=== PATIENT | female | born 1975 | race Caucasian/White ===

== ENCOUNTER 2017-09-07 17:39 | Inpatient (IN) | payer OTHER ==
[~2017-09-07] VITALS: Ht 157.5 cm; Wt 99.8 kg
[2017-09-07] MEDS ORDERED: METHYLPREDNISOLONE 125 MG VIAL IV STA (19:15)
[2017-09-07] MEDS ORDERED: ALBUT/IPRATROP 3MG/0.5MG NEB 3 ML VIAL INH ONE (19:30)
[2017-09-07 19:32] VITALS: PULSE 117; O2SAT 94
--- NOTE | 2017-09-07 19:34 | DIAGNOSTIC IMAGING REPORT ---
CHEST ONE VIEW PORTABLE CLINICAL HISTORY: cough COMPARISON STUDY: No previous studies for comparison. FINDINGS: The heart is normal in size. There is no failure. There is no focal pulmonary consolidation. There are no pleural effusions. There is equivocal interstitial thickening, left greater than right. And interstitial inflammatory process cannot be excluded. Clinical and/or radiographic follow-up is recommended.[ IMPRESSION: Equivocal nonspecific interstitial thickening. No evidence of lobar consolidation Electronically signed by: Frederick Myers M.D. 09/07/2017 7:33 PM Dictated Date/Time: 09/07/2017 7:31 PM
[2017-09-07 19:36] LABS: BASO % 0.4 %; BASO ABS # 0.05 K/uL (0-0.2); EOS % 0.9 %; EOS ABS # 0.12 K/uL (0-0.5); HEMATOCRIT 39.4 % (37-47); HEMOGLOBIN 13.8 g/dL (12.0-16.0); IG# 0.05 K/uL (0.00-0.02); LYMPH % 23.5 %; LYMPH ABS # 3.03 K/uL (1.2-3.4); MEAN CELL VOLUME 83.7 fL (80-100); MEAN CORPUSCULAR HEMOGLOBIN 29.3 pg (25-34); MEAN PLATELET VOLUME 8.6 fL (7.4-10.4); MONO % 7.7 %; MONO ABS # 0.99 K/uL (0.11-0.59); NEUT % 67.1 %; NEUT ABS # 8.67 K/uL (1.4-6.5); PLATELET COUNT 345 K/uL (130-400); RED CELL DISTRIBUTION WIDTH CV 14.1 % (11.5-14.5); RED CELL DISTRIBUTION WIDTH SD 43.1 fL (36.4-46.3); WHITE BLOOD COUNT 12.91 K/uL (4.8-10.8)
[2017-09-07 19:48] LABS: ALBUMIN 3.3 gm/dl (3.4-5.0); ALT/SGPT 29 U/L (12-78); BLOOD UREA NITROGEN 14 mg/dl (7-18); CALCIUM 9.4 mg/dl (8.5-10.1); CARBON DIOXIDE 24 mmol/L (21-32); CREATININE 0.67 mg/dl (0.60-1.20); GLUCOSE 123 mg/dl (70-99); POTASSIUM 3.5 mmol/L (3.5-5.1); SODIUM 136 mmol/L (136-145)
[2017-09-07 19:53] LABS: ALKALINE PHOSPHATASE 109 U/L (45-117); AST/SGOT 20 U/L (15-37); TOTAL PROTEIN 7.6 gm/dl (6.4-8.2)
--- NOTE | 2017-09-07 20:04 | EMERGENCY ROOM VISIT NOTE ---
History Report prepared by Kenji: Gorge Fried Under the Supervision of: Dr. Alec Tsai M.D. First contact with patient: 18:53 Chief Complaint: ILLNESS Stated Complaint: CAN'T BREATH, RT EAR ACHE History of Present Illness The patient is a 41 year old female who presents to the Emergency Room with complaints of a worsening fever that began a week ago. She rates her discomfort as a 3/10 in severity. The patient states that a week ago she started to experiencing a fever, cough, hoarse voice, and right ear pain. She states that she believed she was starting to develop a cold. The patient states that she has been experiencing body aches, a headache, and mild diarrhea. The patient states that throughout the week, her symptoms worsened and she started to become short of breath. She states that her left ear has also been starting to become painful. She states that she went to [place] on the due to her symptoms where they gave her albuterol, Biaxin, Tamiflu, and prednisone, but she denies any relief of symptoms. The patient states that she had an CT and X- ray done, without any significant results. The patient denies LOC, chills, diaphoresis, visual changes, neck pain, chest pain, nausea, vomiting, abdominal pain, back pain, melena, hematochezia, urinary symptoms, numbness, weakness, lymphadenopathy, rash, or other complaints. She reports a history of blood clots, which she states she took blood thinners for but that the blood thinners did not work. Source of History: patient Onset: a week ago Position: other (global) Symptom Intensity: 3/10 Timing: worsening Modifying Factors (Relieving): other (Prednisone, albuterol, Biaxin, Tamiflu ) Associated Symptoms: + headache, + cough, + SOB, + diarrhea Review of Systems See HPI for pertinent positives and negatives. A total of ten systems were reviewed and were otherwise negative. Past Medical & Surgical Medical Problems: (1) COPD exacerbation (2) H/O blood clots Family History Patient reports no known family medical history. Social History Smoking Status: Current Every Day Smoker Marital Status: Housing Status: lives with significant other Current/Historical Medications No Active Prescriptions or Reported Meds Allergies Coded Allergies: No Known Allergies (Unverified , 09/07/17) Physical Exam Vital Signs Date Time Temp Pulse Resp B/P (MAP) Pulse Ox O2 Delivery O2 Flow Rate FiO2 09/07/17 23:10 122 22 141/124 96 Room Air 09/07/17 21:37 111 22 175/85 99 Room Air 09/07/17 19:54 114 22 189/100 99 Nebulizer 09/07/17 19:43 98 Room Air 09/07/17 19:43 98 Room Air 09/07/17 19:32 117 24 94 Room Air 09/07/17 18:15 36.9 117 20 183/97 96 Room Air Physical Exam GENERAL: Awake, alert, well-appearing, in no distress HENT: Normocephalic, atraumatic. Oropharynx unremarkable. Mild right ear tenderness. EYES: Normal conjunctiva. Sclera non-icteric. NECK: Supple. No nuchal rigidity. FROM. No JVD. RESPIRATORY: Wheezing bilaterally, hoarse breath sounds. CARDIAC: Tachycardic, normal rhythm. Extremities warm and well perfused. Pulses equal. ABDOMEN: Soft, non-distended. No tenderness to palpation. No rebound or guarding. No masses. RECTAL: Deferred. MUSCULOSKELETAL: Chest examination reveals no tenderness. The back is symmetrical on inspection without obvious abnormality. There is no CVA tenderness to palpation. No joint edema. LOWER EXTREMITIES: Calves are equal size bilaterally and non-tender. No edema. No discoloration. NEURO: Normal sensorium. No sensory or motor deficits noted. SKIN: No rash or jaundice noted. Medical Decision & Procedures ER Provider Diagnostic Interpretation: X-ray: Per my interpretation, radiologist review. CHEST ONE VIEW PORTABLE CLINICAL HISTORY: cough COMPARISON STUDY: No previous studies for comparison. FINDINGS: The heart is normal in size. There is no failure. There is no focal pulmonary consolidation. There are no pleural effusions. There is equivocal interstitial thickening, left greater than right. And interstitial inflammatory process cannot be excluded. Clinical and/or radiographic follow-up is recommended.[ IMPRESSION: Equivocal nonspecific interstitial thickening. No evidence of lobar consolidation Electronically signed by: Frederick Myers M.D. 09/07/2017 7:33 PM Dictated Date/Time: 09/07/2017 7:31 PM Laboratory Results 09/07/17 19:23 Red Blood Count 4.71, Mean Corpuscular Volume 83.7, Mean Corpuscular Hemoglobin 29.3, Mean Corpuscular Hemoglobin Concent 35.0, Mean Platelet Volume 8.6, Neutrophils (%) (Auto) 67.1, Lymphocytes (%) (Auto) 23.5, Monocytes (%) (Auto) 7.7, Eosinophils (%) (Auto) 0.9, Basophils (%) (Auto) 0.4, Neutrophils # (Auto) 8.67, Lymphocytes # (Auto) 3.03, Monocytes # (Auto) 0.99, Eosinophils # (Auto) 0.12, Basophils # (Auto) 0.05 09/07/17 19:23 Test 09/07/17 19:23 White Blood Count 12.91 K/uL (4.8-10.8) Red Blood Count 4.71 M/uL (4.2-5.4) Hemoglobin 13.8 g/dL (12.0-16.0) Hematocrit 39.4 % (37-47) Mean Corpuscular Volume 83.7 fL (80-100) Mean Corpuscular Hemoglobin 29.3 pg (25-34) Mean Corpuscular Hemoglobin Concent 35.0 g/dl (32-36) Platelet Count 345 K/uL (130-400) Mean Platelet Volume 8.6 fL (7.4-10.4) Neutrophils (%) (Auto) 67.1 % Lymphocytes (%) (Auto) 23.5 % Monocytes (%) (Auto) 7.7 % Eosinophils (%) (Auto) 0.9 % Basophils (%) (Auto) 0.4 % Neutrophils # (Auto) 8.67 K/uL (1.4-6.5) Lymphocytes # (Auto) 3.03 K/uL (1.2-3.4) Monocytes # (Auto) 0.99 K/uL (0.11-0.59) Eosinophils # (Auto) 0.12 K/uL (0-0.5) Basophils # (Auto) 0.05 K/uL (0-0.2) RDW Standard Deviation 43.1 fL (36.4-46.3) RDW Coefficient of Variation 14.1 % (11.5-14.5) Immature Granulocyte % (Auto) 0.4 % Immature Granulocyte # (Auto) 0.05 K/uL (0.00-0.02) Anion Gap 10.0 mmol/L (3-11) Est Creatinine Clear Calc Drug Dose 122.1 ml/min Estimated GFR () 126.5 Estimated GFR (Non- 109.2 BUN/Creatinine Ratio 21.1 (10-20) Calcium Level 9.4 mg/dl (8.5-10.1) Total Bilirubin 0.3 mg/dl (0.2-1) Aspartate Amino Transf (AST/SGOT) 20 U/L (15-37) Alanine Aminotransferase (ALT/SGPT) 29 U/L (12-78) Alkaline Phosphatase 109 U/L (45-117) Troponin I < 0.015 ng/ml (0-0.045) Total Protein 7.6 gm/dl (6.4-8.2) Albumin 3.3 gm/dl (3.4-5.0) Globulin 4.3 gm/dl (2.5-4.0) Albumin/Globulin Ratio 0.8 (0.9-2) Laboratory results reviewed by me Medications Administered Medications (Trade) Dose Ordered Sig/Dany Route Start Time Stop Time Status Last Admin Dose Admin Methylprednisolone Sodium Succinate (Solu-Medrol IV) 125 mg NOW STAT IV 09/07/17 19:15 09/07/17 19:16 DC 09/07/17 19:15 125 MG Albuterol/ Ipratropium (Duoneb) 12 ml ONE ONCE INH 09/07/17 19:30 09/07/17 19:31 DC 09/07/17 19:30 12 ML Hydrocodone Bit/ Homatropine Methylb (Hycodan Syrup) 10 ml NOW STAT PO 09/07/17 21:14 09/07/17 21:16 DC 09/07/17 21:14 10 ML Albuterol/ Ipratropium (Duoneb) 3 ml NOW STAT INH 09/07/17 21:37 09/07/17 21:38 DC 09/07/17 21:37 3 ML Albuterol Sulfate (Ventolin 0.083% 2.5MG/3ML Neb) 2.5 mg NOW STAT INH 09/07/17 23:32 09/07/17 23:33 DC 09/07/17 23:41 2.5 MG ECG Indication: SOB/dyspnea Rate (beats per minute): 113 Rhythm: sinus tachycardia Findings: no acute ischemic change, no ectopy, other (PRWP) Change: Patient's electrocardiogram was interpreted by me. ED Course 1909: The patient was evaluated in room A04B. A complete history and physical exam was performed. 1914: Ordered Solu-Medrol 125 mg IV. 1929: Ordered Duoneb 12 ml INH. 1957: I reevaluated the patient and she is feeling slightly better. 2107: I reevaluated the patient and she is having a coughing fit. I reexamined her lungs, which showed improvement. The patient states that she is still short of breath. I updated her on the results and discussed further evaluation. She agreed to the plan. 2113: Ordered Hycodan Syrup 10 ml PO. 2136: Ordered Duoneb 3 ml INH. 2233: I discussed the patient's case with Dr. Gil, [facility] Hospitalist. He understands the patient's condition and agrees to accept the patient. The patient will be further evaluated. Medical Decision Prior records/ancillary studies reviewed. Triage Nursing notes reviewed and agree them. Additional history obtained from the family. The patient's history was concerning for shortness of breath. Differential diagnosis: Etiologies such as pneumonia, COPD, reactive airway disease, CHF, cardiac ischemia, pulmonary embolism, pneumothorax, musculoskeletal, infections, gastrointestinal, as well as others were entertained. Physical examination: As above. Bilateral wheezing. She had mild laryngitis. ER treatment provided: IV Solu-Medrol Hour long DuoNeb On reassessment the patient felt no better. Hycodan Additional nebulizer treatment. On reassessment the patient was still feeling short of breath and had increased work of breathing. Her wheezing had improved. Tessalon Perle Additional nebulizer treatment. Diagnostic interpretation by me: The electrocardiogram was negative for pathologic change. The labs revealed mild leukocytosis on CBC. Chemistry panel unremarkable. Cardiac markers negative. Imaging studies: Chest x-ray as above. The patient has signs and symptoms consistent with an asthmatic bronchitis. She had flulike symptoms and she had significant wheezing. She is a smoker. She has no known history of asthma or COPD at this point. Given her work of breathing and significant amount of bronchodilators needed she will require admission to the hospital.I gave my usual and customary discussion regarding this issue. Consultation: A consultation was placed with the hospitalist. The case was discussed and diagnostics were reviewed. The patient was evaluated in the ER for further treatment. Medication Reconcilliation Current Medication List: was personally reviewed by me Blood Pressure Screening Patient's blood pressure: Elevated blood pressure Referred to Hospitalist. Consults Time Called: 2233 Consulting Physician: Dr. Gil, [facility] Hospitalist Returned Call: 2233 I discussed the patient's case with Dr. Gil, [facility] Hospitalist. He understands the patient's condition and agrees to accept the patient. The patient will be further evaluated. Impression Primary Impression: Shortness of breath Additional Impressions: Wheezing RAD (reactive airway disease) Scribe Attestation The scribe's documentation has been prepared under my direction and personally reviewed by me in its entirety. I confirm that the note above accurately reflects all work, treatment, procedures, and medical decision making performed by me. Departure Information Dispostion Being Evaluated By Hospitalist Prescriptions No Active Prescriptions or Reported Meds Referrals Trevor Olson PA-C (PCP) Patient Instructions My [facility] Problem Qualifiers
[2017-09-07] MEDS ORDERED: HYDROCODONE/HOMATROPINE SYRUP 5MG/1.5MG 5ML UDP PO STA (21:14)
[2017-09-07] MEDS ORDERED: ALBUT/IPRATROP 3MG/0.5MG NEB 3 ML VIAL INH STA (21:37)
[2017-09-07] MEDS ORDERED: ALBUTEROL 0.083% NEBU SOLN 3 ML VIAL INH STA (23:32)
[2017-09-07] MEDS ORDERED: POLYETHYLENE (MIRALAX) 17 GM PACK PO PRN (23:45)
[2017-09-07] MEDS ORDERED: ALUMINUM/MAGNESIUM/SIMETH (MAALOX MAX) 30 ML UDC PO PRN (23:45)
[2017-09-07] MEDS ORDERED: MAGNESIUM HYDROXIDE SUSP 30 ML UDC PO PRN (23:45)
[2017-09-07] MEDS ORDERED: ALBUTEROL 0.083% NEBU SOLN 3 ML VIAL INH PRN (23:45)
[2017-09-07] MEDS ORDERED: ONDANSETRON INJ 2 MG/ML 2 ML VIAL IV PRN (23:45)
[2017-09-07] MEDS ORDERED: BENZONATATE 100MG CAP PO ONE (23:45)
[2017-09-08] VITALS (8 sets, daily range): BP systolic 134–165; BP diastolic 78–97; PULSE 80–137; TEMP 36.7–36.9; O2SAT 90–94; BMI 40.2
--- NOTE | 2017-09-08 00:10 | History and Physical ---
History & Physical Date & Time of Service: Sep 07, 2017 at 23:54 Chief Complaint: Can't Breath, Rt Ear Ache Primary Care Physician: Trevor Olson PA-C History of Present Illness Source: patient 41 y/o F smoker who has had upper respiratory symptoms for approximately one week. She primarily complains of a persistent coughing. She had been to the ER at [place] and was D/Cd from the ER with Biaxin, Albuterol, Tamiflu and a Prednisone taper. She states that these medications have not improved her condition. She had mild diarrhea and reported fevers initially. She is SOB but has not displayed hypoxia. She had also reported an ear ache on the R earlier in the week. The pt reports that she currently has a child with URI symptoms. Past Medical/Surgical History Tobacco abuse Denies a history of COPD or asthma Family History Patient reports no known family medical history. Father - lung CA Social History Smokes one pack QD > 20 yrs Smoking Status: Current Every Day Smoker Marital Status: Allergies Coded Allergies: No Known Allergies (Unverified , 09/07/17) Home Medications No Active Prescriptions or Reported Meds Review of Systems Constitutional: No fever, No chills, No sweats Eyes: No worsening of vision ENT: No hearing loss, No unusual epistaxis, No nasal symptoms Respiratory: + cough Cardiovascular: No chest pain, No orthopnea, No PND Abdomen: + diarrhea, No pain, No nausea, No vomiting Musculoskeletal: No joint pain Genitourinary - Female: No dysuria, No urinary frequency, No urinary urgency Neurologic: No memory loss, No paralysis, No weakness Psychiatric: No depression symptoms Endocrine: No fatigue Hematologic / Lymphatic: No abnormal bleeding/bruising Integumentary: No rash Allergic / Immunologic: No environmental allergies Physical Exam Vital Signs Date Time Temp Pulse Resp B/P (MAP) Pulse Ox O2 Delivery O2 Flow Rate FiO2 09/07/17 23:10 122 22 141/124 96 Room Air 09/07/17 21:37 111 22 175/85 99 Room Air 09/07/17 19:54 114 22 189/100 99 Nebulizer 09/07/17 19:43 98 Room Air 09/07/17 19:43 98 Room Air 09/07/17 19:32 117 24 94 Room Air 09/07/17 18:15 36.9 117 20 183/97 96 Room Air General Appearance: + pertinent finding (Distressed, overweight younger female - could not stop coughing for exam - made it difficult for her to complete her sentences) Head: normocephalic Eyes: normal inspection ENT: normal ENT inspection, pharynx normal Neck: supple, no JVD Respiratory/Chest: chest non-tender, + pertinent finding (Exam was limited due to coughing and resultant shallow resprs - could not hear clear crackles or wheezing) Cardiovascular: no edema, no gallop, + tachycardia Abdomen/GI: normal bowel sounds, non tender, soft Back: normal inspection Extremities/Musculoskelatal: normal inspection, no calf tenderness, normal capillary refill 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, no motor/sensory deficits, alert, oriented x 3 Skin: normal color Diagnostics Laboratory Results Results Past 24 Hours Test 09/07/17 19:23 Range/Units White Blood Count 12.91 4.8-10.8 K/uL Red Blood Count 4.71 4.2-5.4 M/uL Hemoglobin 13.8 12.0-16.0 g/dL Hematocrit 39.4 37-47 % Mean Corpuscular Volume 83.7 80-100 fL Mean Corpuscular Hemoglobin 29.3 25-34 pg Mean Corpuscular Hemoglobin Concent 35.0 32-36 g/dl Platelet Count 345 130-400 K/uL Mean Platelet Volume 8.6 7.4-10.4 fL Neutrophils (%) (Auto) 67.1 % Lymphocytes (%) (Auto) 23.5 % Monocytes (%) (Auto) 7.7 % Eosinophils (%) (Auto) 0.9 % Basophils (%) (Auto) 0.4 % Neutrophils # (Auto) 8.67 1.4-6.5 K/uL Lymphocytes # (Auto) 3.03 1.2-3.4 K/uL Monocytes # (Auto) 0.99 0.11-0.59 K/uL Eosinophils # (Auto) 0.12 0-0.5 K/uL Basophils # (Auto) 0.05 0-0.2 K/uL RDW Standard Deviation 43.1 36.4-46.3 fL RDW Coefficient of Variation 14.1 11.5-14.5 % Immature Granulocyte % (Auto) 0.4 % Immature Granulocyte # (Auto) 0.05 0.00-0.02 K/uL Sodium Level 136 136-145 mmol/L Potassium Level 3.5 3.5-5.1 mmol/L Chloride Level 102 98-107 mmol/L Carbon Dioxide Level 24 21-32 mmol/L Anion Gap 10.0 3-11 mmol/L Blood Urea Nitrogen 14 7-18 mg/dl Creatinine 0.67 0.60-1.20 mg/dl Est Creatinine Clear Calc Drug Dose 122.1 ml/min Estimated GFR () 126.5 Estimated GFR (Non- 109.2 BUN/Creatinine Ratio 21.1 10-20 Random Glucose 123 70-99 mg/dl Calcium Level 9.4 8.5-10.1 mg/dl Total Bilirubin 0.3 0.2-1 mg/dl Aspartate Amino Transf (AST/SGOT) 20 15-37 U/L Alanine Aminotransferase (ALT/SGPT) 29 12-78 U/L Alkaline Phosphatase 109 45-117 U/L Troponin I < 0.015 0-0.045 ng/ml Total Protein 7.6 6.4-8.2 gm/dl Albumin 3.3 3.4-5.0 gm/dl Globulin 4.3 2.5-4.0 gm/dl Albumin/Globulin Ratio 0.8 0.9-2 Diagnostic Radiology CXR: No clear evidence of PNM, COPD Nonpathologic hilar lymphadenopathy seen on CT without additional acute findings EKG Sinus tach Impression Assessment and Plan 41 y/o F smoker who has had upper respiratory symptoms for approximately one week. She primarily complains of a persistent coughing. She had been to the ER at [place] and was D/Cd from the ER with Biaxin, Albuterol, Tamiflu and a Prednisone taper. She states that these medications have not improved her condition. She had mild diarrhea and reported fevers initially. She is SOB but has not displayed hypoxia. She had also reported an ear ache on the R earlier in the week. The pt likely has a viral URI as she reports a child with same had been sick earlier in the week. She may have underlying lung disease leading to her perceived lack of improvement and persistent cough. We will place her on an asthma/COPD regimen with Zithromax and request a pulmonary consult. To suppress her cough we have provided both IV steroids and a cough syrup with codeine. Pt is to receive advice on smoking cessation. Full code - Lovenox prophylaxis Total time for this admit including review of labs, meds, imaging - review of outside records - discussion with pt and ER attending - 37 min Level of Care Med/Surg Resuscitation Status FULL RESUSCITATION VTE Prophylaxis VTE Risk Assessment Done? Y/N: Yes Risk Level: Low Given or contraindicated: Enoxaparin (Lovenox)SQ
[2017-09-08] MEDS ORDERED: GUAIFENESIN/CODEINE 100MG/10MG 5ML UDC PO STA (00:20)
[2017-09-08] MEDS: AZITHROMYCIN IV 500 MG in DEXTROSE 5% 250ML 250 ML IV SCH (01:12)
[2017-09-08] MEDS: ZOLPIDEM TARTRATE 5 MG TAB PO PRN ×2 (01:33→20:27)
[2017-09-08] MEDS: METHYLPREDNISOLONE IV 60 MG in SYRINGE 0 ML IV SCH ×4 (01:33→20:28)
[2017-09-08] MEDS: ALBUT/IPRATROP 3MG/0.5MG NEB 3 ML VIAL INH SCH ×4 (02:07→19:07)
[2017-09-08 09:21] LABS: HEMATOCRIT 37.6 % (37-47); HEMOGLOBIN 13.1 g/dL (12.0-16.0); MEAN CELL VOLUME 83.6 fL (80-100); MEAN CORPUSCULAR HEMOGLOBIN 29.1 pg (25-34); MEAN CORPUSCULAR HGB CONC 34.8 g/dl (32-36); MEAN PLATELET VOLUME 8.8 fL (7.4-10.4); PLATELET COUNT 361 K/uL (130-400); RED CELL DISTRIBUTION WIDTH CV 14.1 % (11.5-14.5); WHITE BLOOD COUNT 17.97 K/uL (4.8-10.8)
[2017-09-08 09:28] LABS: CREATININE 0.91 mg/dl (0.60-1.20)
--- NOTE | 2017-09-08 09:47 | PULMONARY CONSULTATION ---
DATE OF CONSULTATION: 09/08/2017 TIME: 8:25 a.m. REPORT OF CONSULTATION: The patient was seen in room 400. She is a 41-year-old female who has been sick for approximately 1 week. She developed a myriad of symptoms including fevers and cough. She has had fevers up and down over the course of the past week and they have been persistent. Her cough has been severe. It is generally non-productive. She has had some hoarseness. She has noticed some pain in her chest related specifically to coughing. She has had headaches, which she felt was from the cough. She has had pain in the area of the right ear. She has had somewhat diffuse myalgias. She has had mild diarrhea. She went to the Emergency Room in [place] on September 02. They reportedly treated her with Tamiflu, although her flu test was actually negative. They gave her an albuterol inhaler, which was Proventil. They gave her clarithromycin. They gave her prednisone. They did do a CT angio of the chest in [place]. This showed no evidence of pulmonary embolism. They reported mild prominence of the mediastinal and hilar lymph nodes, but without pathologic enlargement. The patient did not improve after several days of treatment. She went to her family physician yesterday who referred her to [facility]. Since she has been here, she has not had a fever. She is feeling modestly better, but still short of breath. The biggest symptom for her has been wheezing. She has received several breathing treatments with benefit. She notices that the neb treatments seemed to help her. She was given Solu-Medrol. She was given some Hycodan syrup. She has not exerted herself to any degree. The patient relates that she has had in the wintertime of the last 2 years, similar illnesses that went to her chest with an asthmatic bronchitis type of problem. She was not as sick with those episodes as she was currently. Her prior lung history is that she had a pulmonary embolism diagnosed about 20 years ago. She thinks she was only on anticoagulation for a couple of weeks, but she was not really sure. She states that there has never been a diagnosis of COPD made. She has never had pulmonary functions. She has not been on any inhaler medicines at home in the past. PAST SURGICAL HISTORY: Tubal ligation. PAST MEDICAL HISTORY: Only as noted above. SOCIAL HISTORY: Tobacco 1 pack per day for more than 25 years. Alcohol use is described as social. FAMILY HISTORY: Mother at age 60 from lung cancer. She was a smoker. Father living, age 73, has diabetes. ALLERGIES: No known allergies. 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 REVIEW OF SYSTEMS: The patient lives with her significant other and 2 sons. She states all are sick at present with a respiratory type illness. Her energy level is decreased. She does have nasal congestion and postnasal drip. The left ear is starting to bother her some as well as the right ear. Her appetite has been relatively unaffected. The remainder of virtue of systems is otherwise negative. Ten systems were reviewed. PHYSICAL EXAMINATION: GENERAL: The patient is a 41-year-old female who was cooperative, alert and oriented. She was in no acute distress. VITAL SIGNS: Temperature this morning is 36.8. HEENT: Pupils were reactive to light. Nares were congested. Mouth exam shows an enlarged uvula with moderate narrowing in the pharynx. She admitted to snoring. She states she has never been told that she stops breathing, however. NECK: She has a large neck. No lymphadenopathy was noted. CARDIOVASCULAR: The cardiac rates have been elevated. Currently, the heart rate is 118. Blood pressure is 165/78. LUNGS: Respiratory rate is 20 breaths per minute. Diffuse wheezes are heard bilaterally on inspiration and expiration, but greater on expiration. Oxygen saturation on room air is 91%. ABDOMEN: Obese. Bowel sounds were normal. There was no tenderness to palpation, masses, or organomegaly. EXTREMITIES: Showed no cyanosis, clubbing or edema. There was no erythema or tenderness in her lower extremities. LABORATORY AND DIAGNOSTIC DATA: Chest x-ray done on admission showed mild prominence of the interstitial markings, but otherwise was negative. It was a borderline normal study. White count is 12.91. Hemoglobin 13.8. Platelets 345,000. The differential count showed neutrophils to be 67%. Urinalysis showed 3+ glucose, 1+ blood, but negative for bacteria. Electrolytes show sodium 136, potassium 3.5, chloride 102, bicarbonate 24. BUN is 14 with a creatinine of 0.67. Blood sugar randomly 123. Liver functions were normal. Troponin was negative. IMPRESSION: 1. Acute asthmatic bronchitis. 2. Nicotine addiction. COMMENTS AND RECOMMENDATIONS: The patient appears to have an acute asthmatic bronchitis. This is probably viral mediated. This may be superimposed upon COPD, although that is not definite at present. She is tachycardic more than expected, particularly in light of the fact she is not having fevers at present. It is unknown if the tachycardia is because she is in distress from her breathing or if it could be related to the nebulizer solutions. She is currently ordered albuterol/ipratropium every 6 hours. If the heart rates stay elevated, she might need to have a change to levalbuterol. She is on methylprednisolone 60 mg IV q. 6. She will need to have serial checks on her blood sugars. She did have +3 glucosuria. She is on azithromycin. She has Lovenox prophylactically. I agree with the above-mentioned treatment. If she responds nicely, she could hopefully be switched soon to prednisone. I do not believe she is ready for discharge today based upon the degree of tightness she still has on exam and with the tachyarrhythmia. She just did have a CT angio of the chest done at [place], since she became ill and it did not show evidence of pulmonary embolic disease. Thus, for now, I think we can assume that it does not appear that her tachyarrhythmia is related to pulmonary emboli. Cardiac status will need close observation. I spoke with the patient about quitting smoking. She brought up the fact that she does not know that she wants to quit because she will gain weight. I tried to explain to her with her history of having lung cancer in her mother and with her lung issues as they are, she certainly should absolutely quit smoking. She can deal with the weight issue with lifestyle adjustments and her eating habits. She certainly is not committed to doing this at present, however. Thank you for asking me to assist in her care.
[2017-09-08] MEDS: ENOXAPARIN 40 MG/0.4 ML SYR SQ SCH (12:10)
[2017-09-08] MEDS: ACETAMINOPHEN 325 MG TAB PO PRN ×2 (12:11→23:46)
[2017-09-08] MEDS ORDERED: NURSING VERBAL MED ORDER ONE (14:30)
[2017-09-08] MEDS: NICOTINE 21 MG/24 HR TDSY EXT SCH (15:43)
--- NOTE | 2017-09-08 22:26 | Progress Note ---
Subjective Date of Service: Sep 08, 2017. Subjective Pt evaluation today including: conversation w/ patient, physical exam Patient reports mildly improving today. Patient continues to have Shortness of breath at rest with non productive cough. Patient denies fever, chills, nausea, vomiting, headaches. Problem List Medical Problems: (1) RAD (reactive airway disease) Status: Acute (2) Shortness of breath Status: Acute (3) Wheezing Status: Acute Review of Systems Constitutional: No fever, No chills ENT: No hearing loss, No unusual epistaxis Respiratory: + cough, + shortness of breath, + dyspnea on exertion, + dyspnea at rest, No sputum Cardiac: No chest pain, No orthopnea Abdomen: No pain, No nausea Neurologic: No memory loss Heme: No abnormal bleeding/bruising Endo: No fatigue Skin: No rash, No itch All Other Systems: Reviewed and Negative Medications Current Inpatient Medications Medications (Trade) Dose Ordered Sig/Dany Route Start Time Stop Time Status Last Admin Dose Admin Azithromycin 500 mg/Dextrose 255 ml @ 125 mls/hr Q24H IV 09/08/17 01:00 09/15/17 00:59 09/09/17 01:45 125 MLS/HR Enoxaparin Sodium (Lovenox Inj) 40 mg Q24H SQ 09/08/17 12:00 10/08/17 11:59 09/09/17 12:34 40 MG Acetaminophen (Tylenol Tab) 650 mg Q4H PRN PO 09/07/17 23:45 10/07/17 23:44 09/09/17 17:43 650 MG Al Hydrox/Mg Hydrox/Simethicone (Maalox Max Susp) 15 ml Q4H PRN PO 09/07/17 23:45 10/07/17 23:44 Magnesium Hydroxide (Milk Of Magnesia Susp) 30 ml Q6H PRN PO 09/07/17 23:45 10/07/17 23:44 Polyethylene (Miralax Powder Packet) 17 gm DAILY PRN PO 09/07/17 23:45 10/07/17 23:44 Zolpidem Tartrate (Ambien Tab) 5 mg HSZ PRN PO 09/07/17 23:45 10/07/17 23:44 09/08/17 20:27 5 MG Ondansetron HCl (Zofran Inj) 4 mg Q6H PRN IV 09/07/17 23:45 10/07/17 23:44 Methylprednisolone Sodium Succinate 60 mg/Syringe 0.96 ml @ 1.5 mls/min Q6H IV 09/08/17 02:00 10/08/17 01:59 09/09/17 20:12 1.5 MLS/MIN Albuterol Sulfate (Ventolin 0.083% 2.5MG/3ML Neb) 2.5 mg Q4R PRN INH 09/07/17 23:45 10/07/17 23:44 Codeine Phosphate/ Guaifenesin (Robitussin-AC Sugar Free Syrup) 5 ml Q6H PRN PO 09/08/17 00:15 10/08/17 00:14 09/09/17 07:48 5 ML Nicotine (Nicoderm Cq 21MG Patch) 1 patch QAM EXT 09/08/17 14:45 10/08/17 14:44 09/09/17 07:48 1 PATCH Miscellaneous (Remove Nicoderm Patch) 1 ea QAM N/A 09/09/17 08:00 10/09/17 07:59 09/09/17 07:49 1 EA Miscellaneous Information (Consult Glycemic Management Pharmacy) 1 ea UD PRN N/A 09/09/17 08:55 10/09/17 08:54 Insulin Aspart (novoLOG ASPART) SLIDING SCALE If C... ACHS SC 09/09/17 11:00 10/09/17 10:59 09/09/17 20:11 7 UNITS Glucose (Glucose 40% Gel) 15-30 GRAMS 15 GRAMS... UD PRN PO 09/09/17 09:00 10/09/17 08:59 Glucose (Glucose Chew Tab) 4-8 Tablets 4 Tabl... UD PRN PO 09/09/17 09:00 10/09/17 08:59 Dextrose (Dextrose 50% 50ML Syringe) 25-50ML OF 50% DW IV FOR... UD PRN IV 09/09/17 09:00 10/09/17 08:59 Glucagon (Glucagon Inj) 1 mg UD PRN SQ 09/09/17 09:00 10/09/17 08:59 Doxycycline Hyclate (Vibramycin Cap) 100 mg BID PO 09/09/17 11:54 09/19/17 11:53 09/09/17 20:13 100 MG Sodium Chloride ([place] Nasal [place]) 2 sprays Q2R PRN NA 09/09/17 11:45 10/09/17 11:44 Ipratropium [place] (Atrovent 0.02% 0.5MG/2.5ML Neb) 0.5 mg Q4RWA INH 09/09/17 12:00 10/09/17 11:59 09/09/17 18:59 0.5 MG Levalbuterol (Xopenex 1.25MG/ 0.5ML Neb) 1.25 mg Q4RWA INH 09/09/17 12:00 10/09/17 11:59 09/09/17 18:59 1.25 MG Insulin Glargine (Lantus Solostar Pen) 17 units Q12 SC 09/10/17 09:00 10/10/17 08:59 Insulin Aspart (novoLOG ASPART) SLIDING SCALE If C... TODAY@0200 [place] 09/10/17 02:00 09/10/17 02:01 Objective Vital Signs Date Time Temp Pulse Resp B/P (MAP) Pulse Ox O2 Delivery O2 Flow Rate FiO2 09/08/17 19:07 89 16 94 Room Air 09/08/17 16:00 90 Room Air 09/08/17 15:57 36.7 102 18 156/97 (116) 90 Room Air 09/08/17 14:12 82 14 93 Room Air 09/08/17 09:11 Room Air 09/08/17 08:40 Room Air 09/08/17 07:56 36.8 118 16 165/78 (107) 91 09/08/17 07:11 80 16 91 Room Air 09/08/17 01:23 36.9 137 20 134/82 92 Room Air 09/08/17 00:00 133 26 141/124 96 09/07/17 23:10 122 22 141/124 96 Room Air Physical Exam General Appearance: WD/WN, no apparent distress ENT: normal ENT inspection Neck: supple, no adenopathy Respiratory/Chest: chest non-tender, + decreased breath sounds, + accessory muscle use, + wheezing Cardiovascular: regular rate, rhythm, no edema Abdomen: normal bowel sounds, non tender, soft Extremities: normal range of motion Neurologic/Psychiatric: alert, oriented x 3 Skin: normal color Lymphatic: no adenopathy Laboratory Results Last 24 Hours Test 09/08/17 05:15 09/08/17 08:55 Urine Color YELLOW Urine Appearance CLEAR Urine pH 5.0 Urine Specific [place] 1.034 Urine Protein NEG Urine Glucose (UA) 3+ Urine Ketones NEG Urine Occult Blood 1+ Urine Nitrite NEG Urine Bilirubin NEG Urine Urobilinogen NEG Urine Leukocyte Esterase NEG Urine WBC (Auto) 1-5 /hpf Urine RBC (Auto) 0-4 /hpf Urine Hyaline Casts (Auto) 0 /lpf Urine Epithelial Cells (Auto) 10-20 /lpf Urine Bacteria (Auto) NEG White Blood Count 17.97 K/uL Red Blood Count 4.50 M/uL Hemoglobin 13.1 g/dL Hematocrit 37.6 % Mean Corpuscular Volume 83.6 fL Mean Corpuscular Hemoglobin 29.1 pg Mean Corpuscular Hemoglobin Concent 34.8 g/dl RDW Standard Deviation 43.0 fL RDW Coefficient of Variation 14.1 % Platelet Count 361 K/uL Mean Platelet Volume 8.8 fL Prothrombin Time 10.0 SECONDS Prothromb Time International Ratio 1.0 Activated Partial Thromboplast Time 25.0 SECONDS Partial Thromboplastin Ratio 1.0 Creatinine 0.91 mg/dl Est Creatinine Clear Calc Drug Dose 89.9 ml/min Estimated GFR () 90.8 Estimated GFR (Non- 78.4 Assessment and Plan 41 y/o F smoker who has had upper respiratory symptoms for approximately one week. She primarily complains of a persistent coughing. She had been to the ER at [place] and was D/Cd from the ER with Biaxin, Albuterol, Tamiflu and a Prednisone taper. She states that these medications have not improved her condition. . The pt likely has a viral URI as she reports a child with same had been sick earlier in the week. She may have underlying lung disease leading to her perceived lack of improvement and persistent cough. We will place her on an asthma/COPD regimen with Zithromax and request a pulmonary consult. To suppress her cough we have provided both IV steroids and a cough syrup with codeine. Patient is gradually improving. Patient placed on zithromycin and steroids. Patient also placed on nicotine patches as she smoked 1 ppd for years.. I also consulted pulmonary. will continue to monitor patient will likely need PFT as outpatient once she improves and is no longer in acute state. Pt is to receive advice on smoking cessation. Full code - Lovenox prophylaxis Continued [facility] stay due to: multiple IV medications needed Discharge planning: uncertain
[2017-09-08] MEDS: GUAIFENESIN/CODEINE 100MG/10MG 5ML UDC PO PRN (23:45)
[2017-09-09] VITALS (9 sets, daily range): BP systolic 134–159; BP diastolic 78–95; PULSE 92–116; TEMP 36.7; O2SAT 20–95
[2017-09-09] MEDS: ALBUT/IPRATROP 3MG/0.5MG NEB 3 ML VIAL INH SCH ×2 (01:22→06:54)
[2017-09-09] MEDS: METHYLPREDNISOLONE IV 60 MG in SYRINGE 0 ML IV SCH ×4 (01:43→20:12)
[2017-09-09] MEDS: AZITHROMYCIN IV 500 MG in DEXTROSE 5% 250ML 250 ML IV SCH (01:45)
[2017-09-09] MEDS: GUAIFENESIN/CODEINE 100MG/10MG 5ML UDC PO PRN (07:48)
[2017-09-09] MEDS: NICOTINE 21 MG/24 HR TDSY EXT SCH (07:48)
[2017-09-09] MEDS: ACETAMINOPHEN 325 MG TAB PO PRN ×2 (07:49→17:43)
[2017-09-09] MEDS ORDERED: PHARMACY GLYCEMIC MGMT CONSULT PRN (08:55)
[2017-09-09] MEDS ORDERED: GLUCAGON FOR INJ 1 MG VIAL SQ PRN (09:00)
[2017-09-09] MEDS ORDERED: GLUCOSE 40% GEL 15 GM TUBE PO PRN (09:00)
[2017-09-09] MEDS ORDERED: GLUCOSE 10 TABS/TUBE PO PRN (09:00)
[2017-09-09] MEDS ORDERED: DEXTROSE 50% 50 ML SYR IV PRN (09:00)
[2017-09-09] MEDS ORDERED: SODIUM CHLORIDE 0.65% NA SOLN 45 ML (OCEAN) PRN (11:45)
[2017-09-09] MEDS ORDERED: LEVALBUTEROL/IPRATROPIUM NEB INH SCH (12:00)
[2017-09-09 12:13] LABS: INFLUENZA B ANTIGEN Neg for Influ B (NEG)
[2017-09-09] MEDS: LEVALBUTEROL 1.25MG/0.5ML NEB INH SCH ×3 (12:19→18:59)
[2017-09-09] MEDS: IPRATROPIUM BROMIDE NEB SOLN 0.02% 2.5 ML VIAL INH SCH ×3 (12:19→18:59)
--- NOTE | 2017-09-09 12:24 | PULMONARY PROGRESS NOTE ---
DATE: 09/09/2017 PROBLEM LIST: Includes: 1. Acute asthmatic bronchitis. 2. Nicotine addiction. SUBJECTIVE: The patient actually reports that she is feeling worse today. She states that this morning she started with muscle aches and pains. She started with headache. She states that she is getting more mucus from her nose. The mucus is green in color. She has also been having increased coughing and the cough is tight at times, although she is able to produce a little bit of green mucus from time to time. She has not had any blood in the mucus. She feels more wheezy in her chest. She is unsure if she has had any fever, although she has felt warm. She has felt chilled at that time, but no rigors. Her chest hurts when she coughs. She does not feel like eating, no appetite. She has no nausea or vomiting at this time. She has not had any diarrhea. No swelling in her extremities. OBJECTIVE: GENERAL: The patient is a 41-year-old female in no acute distress. She is not feeling well. She is alert and oriented x3. She does have a fairly significant cough when we are doing the exam. The cough does sound somewhat loose. VITAL SIGNS: Temperature 36.7, pulse 106, respirations 16, blood pressure is 134/78, pulse ox is 92% on room air. NECK: Short and thick, good range of motion. CHEST: The patient actually had faint expiratory wheeze bilaterally throughout. I did not appreciate any rales or rhonchi at this time. CARDIOVASCULAR: The patient is borderline tachycardic. No murmurs, gallops or rubs appreciated. EXTREMITIES: No erythema, no edema noted. NEUROLOGIC: Cranial nerves II-XII grossly intact. LABORATORY DATA: No new lab data today. No new imaging today. IMPRESSION: This is a 41-year-old female with presumed chronic obstructive pulmonary disease due to her smoking history, although she has never had pulmonary function testing done, presented with acute asthmatic bronchitis exacerbation to her breathing. Per previous notes as well as the patient history, she was feeling better yesterday; however, today, she reports that she is feeling worse. Actually, she looks ill and she looks like she is not feeling well. At this point, we need to consider influenza, even though she was checked and tested for that at [facility] on the of this month. The patient may have an acute sinusitis on top of the current problems. Currently, she is on Zithromax. At this point, we will add in doxycycline for a little better coverage. We will get a sinus x-ray as well. Due to her tachycardia, we will transition her from albuterol and the nebulizer to Xopenex and ipratropium. We would recommend that we continue her in the hospital for now. We will reevaluate in the morning.
[2017-09-09] MEDS ORDERED: INSULIN GLARGINE SOLOSTAR 100 UNITS/ML 3 ML PEN SC ONE (12:30)
[2017-09-09] MEDS ORDERED: INSULIN HUMAN REGULAR IV BOLUS 10 UNIT in SYRINGE 0 ML IV SCH (12:30)
[2017-09-09] MEDS: ENOXAPARIN 40 MG/0.4 ML SYR SQ SCH (12:34)
[2017-09-09] MEDS: INSULIN ASPART 100 UNITS/ML 3 ML PEN SC SCH ×3 (12:34→20:11)
[2017-09-09] MEDS: DOXYCYCLINE HYCLATE 100 MG CAP PO SCH ×2 (12:34→20:13)
--- NOTE | 2017-09-09 13:17 | DIAGNOSTIC IMAGING REPORT ---
SINUSES MIN 3 VIEWS ROUTINE CLINICAL HISTORY: 41 years-old Female presenting with sinusitis. TECHNIQUE: 4 views of the sinuses were obtained. COMPARISON: None. FINDINGS: No significant deviation of the bony nasal septum. Layering fluid may be present in the right maxillary sinus otherwise, paranasal sinuses and mastoid air cells are radiographically clear. Orbits intact. Upper cervical spine within normal limits. IMPRESSION: Possible fluid in the right maxillary sinus. If there is continuing clinical concern for sinusitis, CT to be considered. Electronically signed by: Adrián Briones M.D. 09/09/2017 1:16 PM Dictated Date/Time: 09/09/2017 1:14 PM
--- NOTE | 2017-09-09 15:21 | Pharmacy Progress Note ---
Glycemic Control Intl Consult Date of Service Sep 09, 2017. Scope Glycemic Pharmacist consulted by Dr Rincon on 09/09/17 for glycemic control and to write orders per [facility] inpatient glycemic control protocol Objective Weight (Kilograms): 99.800 Accuchecks BSG (last 24hrs): Test 09/09/17 11:30 Bedside Glucose 372 mg/dl (70-90) Recent Pertinent Medications Outpatient Anti-diabetic Regimen: * -- Risk Factors for Insulin Resistance: * Steroids: Solu-Medrol 60 mg IV q6 hours * Infection: possible COPD exacerbation, zithromax * Diet: T2DM Assessment & Plan ASSESSMENT: * Ms Foster is a 41 y/o F without a significant PMH who presents with a pulmonary infection. She has received at least 1.5 days of Solu-Medrol 60 mg IV q6 hours. A random on 09/07/17 at 1900 was 123 mg/dL. Prior to lunch today was 372 mg/dL. * For Lantus, a full 24 hour dose was given today- gave 45 units (inbetween weight-based stress of 2 and 3) then will switch to 17 units twice daily tomorrow (weight-based stress of 2 dosing). Most likely this will need increased. * Weight-based stress of 2-3 for Novolog dosing. Added overnight accucheck. PLAN FOR INPATIENT GLYCEMIC CONTROL: * Basal insulin with LANTUS 45 units SQ x 1 then 17 units twice daily * Correctional Insulin with NOVOLOG per scale ACHS or Q6hrs while NPO * Goal Range: Low 110 mg/dL - High 140 mg/dL * Correction Factor: 20 mg/dL/unit * Nutritional / Prandial insulin per carb ratio of 1 unit per 6 grams CHO consumed * Please note that the plan above was derived based on current level of insulin resistance and hospital stress. These recommendations are appropriate for inpatient admission only. Plan of care upon discharge will need to be reassessed to avoid potential outpatient hypo/hyperglycemia. Thank you.
[2017-09-09] MEDS: ZOLPIDEM TARTRATE 5 MG TAB PO PRN (22:48)
--- NOTE | 2017-09-09 23:22 | Progress Note ---
Subjective Date of Service: Sep 09, 2017. Subjective Pt evaluation today including: conversation w/ patient, physical exam Patient is distraught as she feels no significant improvement today as she continues to feel short of breath at rest. This is accompanied by non productive cough. Patient also reports having frontal headaches which is mild in intensity. Problem List Medical Problems: (1) RAD (reactive airway disease) Status: Acute (2) Shortness of breath Status: Acute (3) Wheezing Status: Acute Review of Systems Constitutional: No fever, No chills, No sweats Eyes: No worsening of vision ENT: No hearing loss Respiratory: + cough, + wheezing, + shortness of breath, No sputum, No dyspnea on exertion Cardiac: No chest pain, No orthopnea Breast: No breast lump Abdomen: No pain Psychiatric: No depression symptoms Heme: No abnormal bleeding/bruising Endo: No fatigue All Other Systems: Reviewed and Negative Medications Current Inpatient Medications Medications (Trade) Dose Ordered Sig/Dany Route Start Time Stop Time Status Last Admin Dose Admin Azithromycin 500 mg/Dextrose 255 ml @ 125 mls/hr Q24H IV 09/08/17 01:00 09/15/17 00:59 09/09/17 01:45 125 MLS/HR Enoxaparin Sodium (Lovenox Inj) 40 mg Q24H SQ 09/08/17 12:00 10/08/17 11:59 09/09/17 12:34 40 MG Acetaminophen (Tylenol Tab) 650 mg Q4H PRN PO 09/07/17 23:45 10/07/17 23:44 09/09/17 17:43 650 MG Al Hydrox/Mg Hydrox/Simethicone (Maalox Max Susp) 15 ml Q4H PRN PO 09/07/17 23:45 10/07/17 23:44 Magnesium Hydroxide (Milk Of Magnesia Susp) 30 ml Q6H PRN PO 09/07/17 23:45 10/07/17 23:44 Polyethylene (Miralax Powder Packet) 17 gm DAILY PRN PO 09/07/17 23:45 10/07/17 23:44 Zolpidem Tartrate (Ambien Tab) 5 mg HSZ PRN PO 09/07/17 23:45 10/07/17 23:44 09/09/17 22:48 5 MG Ondansetron HCl (Zofran Inj) 4 mg Q6H PRN IV 09/07/17 23:45 10/07/17 23:44 Methylprednisolone Sodium Succinate 60 mg/Syringe 0.96 ml @ 1.5 mls/min Q6H IV 09/08/17 02:00 10/08/17 01:59 09/09/17 20:12 1.5 MLS/MIN Albuterol Sulfate (Ventolin 0.083% 2.5MG/3ML Neb) 2.5 mg Q4R PRN INH 09/07/17 23:45 10/07/17 23:44 Codeine Phosphate/ Guaifenesin (Robitussin-AC Sugar Free Syrup) 5 ml Q6H PRN PO 09/08/17 00:15 10/08/17 00:14 09/09/17 07:48 5 ML Nicotine (Nicoderm Cq 21MG Patch) 1 patch QAM EXT 09/08/17 14:45 10/08/17 14:44 09/09/17 07:48 1 PATCH Miscellaneous (Remove Nicoderm Patch) 1 ea QAM N/A 09/09/17 08:00 10/09/17 07:59 09/09/17 07:49 1 EA Miscellaneous Information (Consult Glycemic Management Pharmacy) 1 ea UD PRN N/A 09/09/17 08:55 10/09/17 08:54 Insulin Aspart (novoLOG ASPART) SLIDING SCALE If C... ACHS SC 09/09/17 11:00 10/09/17 10:59 09/09/17 20:11 7 UNITS Glucose (Glucose 40% Gel) 15-30 GRAMS 15 GRAMS... UD PRN PO 09/09/17 09:00 10/09/17 08:59 Glucose (Glucose Chew Tab) 4-8 Tablets 4 Tabl... UD PRN PO 09/09/17 09:00 10/09/17 08:59 Dextrose (Dextrose 50% 50ML Syringe) 25-50ML OF 50% DW IV FOR... UD PRN IV 09/09/17 09:00 10/09/17 08:59 Glucagon (Glucagon Inj) 1 mg UD PRN SQ 09/09/17 09:00 10/09/17 08:59 Doxycycline Hyclate (Vibramycin Cap) 100 mg BID PO 09/09/17 11:54 09/19/17 11:53 09/09/17 20:13 100 MG Sodium Chloride ([place] Nasal [place]) 2 sprays Q2R PRN NA 09/09/17 11:45 10/09/17 11:44 Ipratropium [place] (Atrovent 0.02% 0.5MG/2.5ML Neb) 0.5 mg Q4RWA INH 09/09/17 12:00 10/09/17 11:59 09/09/17 18:59 0.5 MG Levalbuterol (Xopenex 1.25MG/ 0.5ML Neb) 1.25 mg Q4RWA INH 09/09/17 12:00 10/09/17 11:59 09/09/17 18:59 1.25 MG Insulin Glargine (Lantus Solostar Pen) 17 units Q12 SC 09/10/17 09:00 10/10/17 08:59 Insulin Aspart (novoLOG ASPART) SLIDING SCALE If C... TODAY@0200 [place] 09/10/17 02:00 09/10/17 02:01 Objective Vital Signs Date Time Temp Pulse Resp B/P (MAP) Pulse Ox O2 Delivery O2 Flow Rate FiO2 09/09/17 22:26 36.7 97 18 150/95 (113) 93 Room Air 09/09/17 18:59 96 16 93 Room Air 09/09/17 16:00 93 Room Air 09/09/17 15:13 105 16 93 Room Air 09/09/17 14:39 36.7 104 20 159/94 (115) 20 Room Air 09/09/17 12:24 20 09/09/17 11:55 92 16 95 Room Air 09/09/17 09:14 Room Air 09/09/17 08:19 Room Air 09/09/17 08:12 36.7 106 16 134/78 (96) 92 Room Air 09/09/17 06:55 102 16 93 Room Air 09/09/17 01:22 116 16 92 Room Air 09/09/17 00:01 Room Air 09/08/17 23:29 36.7 116 20 158/90 (112) 91 Room Air Physical Exam Comments: General Appearance: WD/WN, no apparent distress ENT: normal ENT inspection Neck: supple, no adenopathy Respiratory/Chest: chest non-tender, + decreased breath sounds, + accessory muscle use, + wheezing Cardiovascular: regular rate, rhythm, no edema Abdomen: normal bowel sounds, non tender, soft Extremities: normal range of motion Neurologic/Psychiatric: alert, oriented x 3 Skin: normal color Lymphatic: no adenopathy Laboratory Results Last 24 Hours Test 09/09/17 11:30 09/09/17 16:16 09/09/17 19:23 Bedside Glucose 372 mg/dl 289 mg/dl 269 mg/dl Influenza Type A Antigen Neg for Influ A Influenza Type B Antigen Neg for Influ B Assessment and Plan 41 y/o F smoker who has had upper respiratory symptoms for approximately one week. She primarily complains of a persistent coughing. She had been to the ER at [place] and was D/Cd from the ER with Biaxin, Albuterol, Tamiflu and a Prednisone taper. She states that these medications have not improved her condition. . The pt likely has a viral URI as she reports a child with same had been sick earlier in the week. She may have underlying lung disease leading to her perceived lack of improvement and persistent cough. We will place her on an asthma/COPD regimen with Zithromax and request a pulmonary consult. To suppress her cough we have provided both IV steroids and a cough syrup with codeine. 1)Asthmatic bronchitis Today Patient appears to be the same as yesterday. Patient placed on zithromycin and steroids. Patient also placed on nicotine patches as she smoked 1 ppd for years.. I also consulted pulmonary. will continue to monitor patient will likely need PFT as outpatient once she improves and is no longer in acute state. Pt is to receive advice on smoking cessation. 2)Nicotinism: Patient is on nicotine patch 21 mg due to 1 ppd of smoking as welll as the fact that her first cigg. is within 30 minutes of waking up 3)Prediabetes: Due to patient being on steroids, patient will be on sliding scale. 4) Obesity morbid grade 2 BMI above 40: will recommend diet and exercise. This may likely improve prediabetes and pulmonary status. Full code - Lovenox prophylaxis Continued [facility] stay due to: multiple IV medications needed Discharge planning: uncertain
[2017-09-10] VITALS (8 sets, daily range): BP systolic 130–162; BP diastolic 72–94; PULSE 86–109; TEMP 36.8–37.1; O2SAT 91–96; Ht 157.5 cm; Wt 99.8 kg
[2017-09-10] MEDS: AZITHROMYCIN IV 500 MG in DEXTROSE 5% 250ML 250 ML IV SCH (01:31)
[2017-09-10] MEDS: METHYLPREDNISOLONE IV 60 MG in SYRINGE 0 ML IV SCH ×2 (01:31→08:43)
[2017-09-10] MEDS ORDERED: INSULIN ASPART 100 UNITS/ML 3 ML PEN SC SCH (02:00)
[2017-09-10] MEDS: GUAIFENESIN/CODEINE 100MG/10MG 5ML UDC PO PRN ×4 (02:10→21:15)
[2017-09-10] MEDS: IPRATROPIUM BROMIDE NEB SOLN 0.02% 2.5 ML VIAL INH SCH ×2 (06:18→11:48)
[2017-09-10] MEDS: LEVALBUTEROL 1.25MG/0.5ML NEB INH SCH ×2 (06:18→11:48)
[2017-09-10] MEDS: DOXYCYCLINE HYCLATE 100 MG CAP PO SCH ×2 (08:42→20:08)
[2017-09-10] MEDS: ACETAMINOPHEN 325 MG TAB PO PRN ×3 (08:42→20:21)
[2017-09-10] MEDS: INSULIN ASPART 100 UNITS/ML 3 ML PEN SC SCH ×4 (08:49→21:13)
[2017-09-10] MEDS: NICOTINE 21 MG/24 HR TDSY EXT SCH (08:50)
[2017-09-10] MEDS ORDERED: INSULIN GLARGINE SOLOSTAR 100 UNITS/ML 3 ML PEN SC SCH ×3 (09:00→21:00)
[2017-09-10] MEDS: ENOXAPARIN 40 MG/0.4 ML SYR SQ SCH (12:23)
--- NOTE | 2017-09-10 12:44 | Pharmacy Progress Note ---
Glycemic Control Progress Note Date of Service Sep 10, 2017. Scope Glycemic Pharmacist consulted for glycemic control to write orders per [facility] inpatient glycemic control protocol. Objective Accuchecks BSG (last 24hrs): Test 09/09/17 16:16 09/09/17 19:23 09/10/17 01:32 09/10/17 07:31 Bedside Glucose 289 mg/dl (70-90) 269 mg/dl (70-90) 167 mg/dl (70-90) 251 mg/dl (70-90) Test 09/10/17 11:56 Bedside Glucose 283 mg/dl (70-90) Recent Pertinent Medications Outpatient Anti-diabetic Regimen: * -- Risk Factors for Insulin Resistance: * Steroids: Solu-Medrol 60 mg IV q6 hours changing to prednisone 30 mg PO BID * Infection: possible COPD exacerbation, zithromax and doxycycline * Diet: T2DM Assessment & Plan ASSESSMENT: * Ms Foster is a 41 y/o F without a significant PMH who presents with a pulmonary infection. She has received at least 2 days of Solu-Medrol 60 mg IV q6 hours. This will be changed to prednisone 30 mg PO BID for discharge. * The patient received 103 units of insulin SQ (45 units of basal 58 units of bolus) and + 10 units IV. Today's fasting blood sugar was 251 mg/dL. The Lantus was increased to weight-based stress of 3 and the Novolog was tightened to weight based stress of 3. PLAN FOR INPATIENT GLYCEMIC CONTROL: * Basal insulin with LANTUS 25 units SQ BID, insert scale for decreased Lantus if patient remains here. * Correctional Insulin with NOVOLOG per scale ACHS or Q6hrs while NPO * Goal Range: Low 110 mg/dL - High 140 mg/dL * Correction Factor: 15 mg/dL/unit * Nutritional / Prandial insulin per carb ratio of 1 unit per 5 grams CHO consumed RECOMMENDATIONS FOR DISCHARGE * If prednisone 30 mg PO BID will be prescribed, recommend NPH 30 units twice daily with meals. (for every 10 mg of prednisone give 0.1 units/kg or 10 units of NPH). * If prednisone 60 mg PO daily will be prescribed, recommend NPH 40 units daily ... continue that dose until taper reaches 30 mg of prednisone then switch to every 10 mg of prednisone give 0.1 units/kg or 10 units. Thank you.
--- NOTE | 2017-09-10 12:46 | Consultant Recommendations ---
Toolroom Checker Recommendations Date of Service Sep 10, 2017. Toolroom Checker Recommendations 1. Doxycycline 100 mg bid for 21 days. 2. Prednisone: 30 mg bid for 2 days, then 30 mg in am and 25 mg in pm for 2 days, then 25 mg bid for 2 days, then 25 mg in the am and 20 mg in the pm for 2 days, then 40 mg in the am for 2 days, then 35 mg in the am daily for 2 days, then 30 mg in the am for 2 days, then 25 mg in the am daily for 2 days, then 20 mg in the am daily for 2 days, then 15 mg in the am daily for 2 days, then 10 mg daily in the am for 2 days, then 5 mg daily in the am for 2 days. 3. Followup with her PCP in 7-10 days. 4. Information for our office in case she would like to followup with pulmonary as an outpatient: Julian Patino PA-C, Address: [address] [place] [address], [address], [place], [place] Press the 3 button when the automated answering service starts. 5 Nicoderm 21 mcg patch to help stop smoking.
--- NOTE | 2017-09-10 13:01 | PULMONARY PROGRESS NOTE ---
DATE: 09/10/2017 PROBLEM LIST: Includes: 1. Acute asthmatic bronchitis. 2. Nicotine addiction. SUBJECTIVE: The patient did have a little bit worsening of her symptoms yesterday. She is feeling much better today. Her breathing has improved. She still has a little bit of cough and congestion. She still has a little bit of a wheezing, but overall is feeling much better. She states that she has had a 180 degree turn around. She states she is able to take a deeper breath and she still has a headache which is more on the right side. She did have a sinus x-ray which is showing a right maxillary sinusitis. Her breathing is better. She has no chest discomfort, no GI discomfort. No nausea or vomiting. She is not having any difficulty with swelling in her extremities. OBJECTIVE: GENERAL: The patient is a 42-year-old female sitting up in bed in no acute distress. She is alert and oriented x3. She is able to speak in complete sentences without difficulty. VITAL SIGNS: Temp 37, pulse 104, respirations 20, blood pressure is 132/72, pulse ox 94% on room air. HEENT: Normocephalic, atraumatic. Pupils equal, round and reactive to light and accommodation. Extraocular movements are intact. [place] moist gingival and buccal mucosa. NECK: Thick, supple. No mass, no adenopathy or bruit. CHEST: She does have a few faint expiratory wheezes. No rale or rhonchi. CARDIOVASCULAR: Regular rate and rhythm. No murmurs, gallops or rubs. ABDOMEN: Soft, nontender. EXTREMITIES: No erythema or edema. NEUROLOGIC: Cranial nerves II-XII are intact. IMAGING DATA: Sinus x-ray showing some air fluid in the right maxillary sinus. IMPRESSION: Acute asthmatic bronchitis and is actually being slightly exacerbated by her sinusitis. The patient is feeling better today with the implementation of the doxycycline. At this point, I feel from a pulmonary standpoint the patient is probably stable enough to be discharged home today. I would recommend to continue doxycycline 100 mg twice daily for 3 weeks. Would recommend prednisone taper starting at 60 mg daily, tapering by 5 mg every 2 days until she is off. She is to continue her routine inhalers or medications as they are. I did recommend that she have a follow up with her primary care provider within a week to 10 days. We will provide her with our office number as she does not follow up with pulmonary, but I did recommend that she does. She is to continue to work to try stop smoking, she is agreeable to this, and she would like to have a prescription for nicotine patches as well.
[2017-09-10 13:35] LABS: HEMOGLOBIN A1C 7.1 % (4.5-5.6)
--- NOTE | 2017-09-10 14:05 | Progress Note ---
Subjective Date of Service: Sep 10, 2017. Subjective will continue with solmedrol tonight will switch to prednisone in AM patient still has signifcant wheezing. Problem List Medical Problems: (1) RAD (reactive airway disease) Status: Acute (2) Shortness of breath Status: Acute (3) Wheezing Status: Acute Objective Vital Signs Date Time Temp Pulse Resp B/P (MAP) Pulse Ox O2 Delivery O2 Flow Rate FiO2 09/10/17 12:37 37.0 86 16 94 Room Air 09/10/17 11:48 86 16 94 Room Air 09/10/17 10:00 Room Air 09/10/17 07:32 37.0 104 20 132/72 (92) 91 Room Air 09/10/17 06:19 90 16 93 Room Air 09/10/17 00:01 Room Air 09/09/17 22:26 36.7 97 18 150/95 (113) 93 Room Air 09/09/17 18:59 96 16 93 Room Air 09/09/17 16:00 93 Room Air 09/09/17 15:13 105 16 93 Room Air 09/09/17 14:39 36.7 104 20 159/94 (115) 20 Room Air Laboratory Results Last 24 Hours Test 09/09/17 16:16 09/09/17 19:23 09/10/17 01:32 09/10/17 07:31 Bedside Glucose 289 mg/dl 269 mg/dl 167 mg/dl 251 mg/dl Test 09/10/17 11:56 09/10/17 12:54 Bedside Glucose 283 mg/dl Estimated Average Glucose 157 mg/dl Hemoglobin A1c 7.1 % Assessment and Plan Held discharge due to significant coughing and wheezing. 41 y/o F smoker who has had upper respiratory symptoms for approximately one week. She primarily complains of a persistent coughing. She had been to the ER at [place] and was D/Cd from the ER with Biaxin, Albuterol, Tamiflu and a Prednisone taper. She states that these medications have not improved her condition. . The pt likely has a viral URI as she reports a child with same had been sick earlier in the week. She may have underlying lung disease leading to her perceived lack of improvement and persistent cough. We will place her on an asthma/COPD regimen with Zithromax and request a pulmonary consult. To suppress her cough we have provided both IV steroids and a cough syrup with codeine. 1)Asthmatic bronchitis Today Patient appears to be the same as yesterday. Patient placed on zithromycin and steroids. Patient also placed on nicotine patches as she smoked 1 ppd for years.. I also consulted pulmonary. will continue to monitor patient will likely need PFT as outpatient once she improves and is no longer in acute state. Pt is to receive advice on smoking cessation. 2)Nicotinism: Patient is on nicotine patch 21 mg due to 1 ppd of smoking as welll as the fact that her first cigg. is within 30 minutes of waking up 3)Prediabetes: Due to patient being on steroids, patient will be on sliding scale. 4) Obesity morbid grade 2 BMI above 40: will recommend diet and exercise. This may likely improve prediabetes and pulmonary status. Full code - Lovenox prophylaxis Continued [facility] stay due to: multiple IV medications needed Discharge planning: uncertain
[2017-09-10] MEDS ORDERED: NURSING VERBAL MED ORDER ONE (14:15)
[2017-09-10] MEDS: LEVALBUTEROL 1.25MG/0.5ML NEB INH PRN (19:12)
[2017-09-10] MEDS: IPRATROPIUM BROMIDE NEB SOLN 0.02% 2.5 ML VIAL INH PRN (19:12)
[2017-09-10] MEDS ORDERED: METHYLPREDNISOLONE 60 MG in SYRINGE 0 ML IV SCH (21:00)
[2017-09-10] MEDS: INSULIN GLARGINE SOLOSTAR 100 UNITS/ML 3 ML PEN SC SCH (21:14)
[2017-09-11] MEDS: ZOLPIDEM TARTRATE 5 MG TAB PO PRN (00:56)
[2017-09-11] MEDS: GUAIFENESIN/CODEINE 100MG/10MG 5ML UDC PO PRN (03:39)
[2017-09-11] MEDS: LEVALBUTEROL 1.25MG/0.5ML NEB INH PRN (03:42)
[2017-09-11] MEDS: IPRATROPIUM BROMIDE NEB SOLN 0.02% 2.5 ML VIAL INH PRN (03:42)
[2017-09-11 03:43] VITALS: PULSE 92; O2SAT 96
[2017-09-11 06:38] VITALS: BP 160/99; PULSE 84; TEMP 36.5; O2SAT 93
[2017-09-11 07:38] VITALS: BP 178/110; PULSE 100; TEMP 36.8; O2SAT 94
[2017-09-11 07:41] VITALS: O2SAT 94
[2017-09-11 08:00] VITALS: O2SAT 93
[2017-09-11] MEDS ORDERED: AZITHROMYCIN 250 MG TAB PO SCH (08:00)
[2017-09-11] MEDS: NICOTINE 21 MG/24 HR TDSY EXT SCH (08:07)
[2017-09-11] MEDS: DOXYCYCLINE HYCLATE 100 MG CAP PO SCH (08:12)
[2017-09-11] MEDS: INSULIN ASPART 100 UNITS/ML 3 ML PEN SC SCH ×2 (08:35→12:32)
[2017-09-11] MEDS: INSULIN GLARGINE SOLOSTAR 100 UNITS/ML 3 ML PEN SC SCH (08:37)
[2017-09-11 10:05] VITALS: BP 127/83
[2017-09-11] MEDS: ENOXAPARIN 40 MG/0.4 ML SYR SQ SCH (12:22)
--- NOTE | 2017-09-11 13:29 | PULMONARY PROGRESS NOTE ---
DATE: 09/11/2017 PROBLEM LIST: Includes: 1. Acute asthmatic chronic bronchitis 2. Nicotine addiction. SUBJECTIVE: This patient wanted to go home yesterday and unfortunately, when she was getting ready to go home, she ended up having a significant coughing paroxysm and significant wheezing, so it was elected to keep her here overnight. The patient reports that she is feeling better today. She states she actually feels quite noticeably better today than yesterday. She states that her cough is productive of a little bit of mucus up. She has not really noticed any wheezing, no chest heaviness or tightness. States that her breathing feels well. OBJECTIVE: GENERAL: The patient is a 42-year-old female sitting in bed in no acute distress. She is alert and oriented x3. Mood is good. Affect is good. VITAL SIGNS: Temp 36.8, pulse 100, respirations 16, blood pressure 127/83, pulse ox 93% on room air. NECK: Short and thick, supple. No masses, adenopathy or bruit. CHEST: Overall, clear. I do not really appreciate any wheezing today. No rale or rhonchi. CARDIOVASCULAR: Regular rate and rhythm. No murmurs, gallops or rubs. ABDOMEN: Bowel sounds present. Abdomen soft, nontender. No guarding, rigidity or organomegaly. EXTREMITIES: No erythema or edema. NEUROLOGIC: Cranial nerves II through XII are intact. LABORATORY DATA: No new lab data. He has no respiratory data. IMPRESSION: 1. Acute asthmatic bronchitis, overall improved. The patient probably does have some underlying chronic obstructive pulmonary disease and will need a pulmonary function testing as an outpatient. 2. Nicotine addiction. The patient is working on quitting smoking. She is having nicotine patches 21 mcg and is doing well with that. PLAN: 1. The patient is okay to be discharged from pulmonary today. 2. To give her office contact information in case she would like to follow up with our office. She does live [place] towards [place], so I am not sure she will followup here or with [place] pulmonary service. I do think it would be important for her to followup. 3. Would recommend that she continue her antibiotic for 3 weeks. 4. Follow up with her PCP in about 7-10 days. EVARISTO
[2017-09-11] MEDS ORDERED: AZIT-57 PO (14:15)
[2017-09-11] MEDS ORDERED: NICO21DI4 EXT (14:15)
[2017-09-11] MEDS ORDERED: METF1TAB85 PO (14:15)
[2017-09-11] MEDS ORDERED: PRED10TA PO (14:15)
[2017-09-11] MEDS ORDERED: DXY100 PO (14:15)
[2017-09-11] MEDS ORDERED: INSULIN HUMAN NPH SC ONE (14:15)
[2017-09-11] MEDS ORDERED: VNTHFA/IN INH (14:16)
--- NOTE | 2017-09-11 14:18 | Discharge Instructions ---
Discharge Instructions Date of Service Sep 11, 2017. Admission Reason for Admission: Copd Exacerbation Discharge Discharge Diagnosis / Problem: COPD exacerbation Discharge Goals Goal(s): Decrease discomfort, Improve function Activity Recommendations Activity Limitations: as noted below Lifting Limitations: gradually increase as tolerated . Instructions / Follow-Up Instructions / Follow-Up Follow up with PCP in 1-2 weeks Current Hospital Diet Patient's current hospital diet: Regular Diet, Diabetes Type 2 Diet Discharge Diet Recommended Diet: Regular Diet, Diabetes Type 2 Diet Pending Studies Studies pending at discharge: no Laboratory Results Hemoglobin A1c Test 09/10/17 12:54 Range/Units Estimated Average Glucose 157 mg/dl Hemoglobin A1c 7.1 H 4.5-5.6 % Medical Emergencies . Who to Call and When: Medical Emergencies: If at any time you feel your situation is an emergency, please call 911 immediately. . Non-Emergent Contact Non-Emergency issues call your: Primary Care Provider Call Non-Emergent contact if: you have any medication questions . . "Provider Documentation" section prepared by Garry Rincon. . Engineering Teacher Recommendations Engineering Teacher Recommendations: 1. Doxycycline 100 mg bid for 21 days. 2. Prednisone: 30 mg bid for 2 days, then 30 mg in am and 25 mg in pm for 2 days, then 25 mg bid for 2 days, then 25 mg in the am and 20 mg in the pm for 2 days, then 40 mg in the am for 2 days, then 35 mg in the am daily for 2 days, then 30 mg in the am for 2 days, then 25 mg in the am daily for 2 days, then 20 mg in the am daily for 2 days, then 15 mg in the am daily for 2 days, then 10 mg daily in the am for 2 days, then 5 mg daily in the am for 2 days. 3. Followup with her PCP in 7-10 days. 4. Information for our office in case she would like to followup with pulmonary as an outpatient: Julian Patino PA-C, Address: [address] [place] [address], [address], [place], [place] Press the 3 button when the automated answering service starts. 5 Nicoderm 21 mcg patch to help stop smoking. VTE Core Measure Inpt VTE Proph given/why not?: Enoxaparin (Lovenox)SQ
--- NOTE | 2017-09-11 14:32 | Pharmacy Progress Note ---
Pharmacy Glycemic Short Note 2 Date of Service Sep 11, 2017. OUTPATIENT ANTIDIABETIC REGIMEN: * N/A * New diabetes diagnosis per recent A1c Item Value Date Time Bedside Glucose 251 mg/dl H 09/10/17 0731 Bedside Glucose 283 mg/dl H 09/10/17 1156 Bedside Glucose 105 mg/dl H 09/10/17 1654 Bedside Glucose 213 mg/dl H 09/10/17 2049 Bedside Glucose 198 mg/dl H 09/11/17 0737 Bedside Glucose 227 mg/dl H 09/11/17 1125 ASSESSMENT: * 42yo female with new diagnosis of T2DM. Pt will require antidiabetic medication at discharge * Pt has received 100+ units over the past 24hrs with poor control. * Steroids tapered from Solumedrol 60mg IV Q12hrs to Prednisone 60mg PO daily. This should yield a slight improvement in glycemic control. * Preferred insulin regimen for steroid induced hyperglycemia secondary to once daily prednisone is NPH once daily - given with prednisone. NPH kinetics mirror that of the hyperglycemic kinetic effects of once daily prednisone. Also, since pt A1c is only mildly elevated 24hr basal insulin (like Lantus) may not be needed. * Recommended dosing for doses of prednisone >40mg daily is 0.4 units/kg given with prednisone. * This equates to NPH 40 units * Will change insulin regimen from SQ basal bolus with Lantus + Novolog to SQ basal bolus insulin regimen with NPH + NovoLog for steroid induced hyperglycemia with once daily prednisone. PLAN FOR INPATIENT GLYCEMIC CONTROL: * Basal insulin * Stop Lantus * Start NPH 40 units SQ daily with prednisone administration * May need to decrease dose with each step down in prednisone dosing * Bolus insulin * NovoLog per scale ACHS or Q6hrs while NPO * Goal Range: Low 110 mg/dL - High 140 mg/dL * Correction Factor: 100 mg/dL/unit * Nutritional / Prandial insulin per carb ratio of 1 unit per 3 grams CHO consumed PLAN FOR DISCHARGE: * A1c = 7.1% on 09/10/17 * Recommend starting Metformin XR 500mg PO daily with evening meal * Typically, the XR/ER version of metformin is better tolerated (GI gongora) than the immediate release formulation * Continue to titrate metformin dosing upwards as recommended. Dosage increases should be made in increments of 500 mg weekly, up to 2,000 mg/day PO, given in divided doses. Doses above 2000 mg/day may be better tolerated if divided and given 3 times per day with meals. Max: 2,550 mg/day PO, in divided doses * Pt may need NPH at discharge for prednisone taper * Recommend: * NPH 40 units (0.4 units/kg) Sq daily --> prednisone 40mg daily * NPH 30 units (0.3 units/kg) Sq daily--> prednisone 30mg daily * NPH 20 units (0.2 units/kg) Sq daily--> prednisone 20mg daily * NPH 10 units (0.1 units/kg) Sq daily--> prednisone 10mg daily
[2017-09-11] MEDS ORDERED: INSULIN GLARGINE SOLOSTAR 100 UNITS/ML 3 ML PEN SC SCH (21:00)
--- NOTE | 2017-09-11 22:52 | Discharge Summary ---
Discharge Summary Date of Service Sep 11, 2017. Discharge Summary Admission Date: Sep 07, 2017 at 23:34 Discharge Date: Sep 11, 2017 Hospital Course 41 y/o F smoker who has had upper respiratory symptoms for approximately one week. She primarily complains of a persistent coughing. She had been to the ER at [place] and was D/Cd from the ER with Biaxin, Albuterol, Tamiflu and a Prednisone taper. She states that these medications have not improved her condition. . The pt likely has a viral URI as she reports a child with same had been sick earlier in the week. She may have underlying lung disease leading to her perceived lack of improvement and persistent cough. We will place her on an asthma/COPD regimen with Zithromax and request a pulmonary consult. To suppress her cough we have provided both IV steroids and a cough syrup with codeine. 1)Asthmatic bronchitis Today Patient appears to be the same as yesterday. Patient placed on zithromycin and steroids. Patient also placed on nicotine patches as she smoked 1 ppd for years.. I also consulted pulmonary. will continue to monitor patient will likely need PFT as outpatient once she improves and is no longer in acute state. Pt is to receive advice on smoking cessation. 2)Nicotinism: Patient is on nicotine patch 21 mg due to 1 ppd of smoking as welll as the fact that her first cigg. is within 30 minutes of waking up 3)Prediabetes: Due to patient being on steroids, patient will be on sliding scale. 4) Obesity morbid grade 2 BMI above 40: will recommend diet and exercise. This may likely improve prediabetes and pulmonary status. Full code - Lovenox prophylaxis This includes examination of the patient, discharge planning, medication reconciliation, and communication with other providers. Discharge Instructions Please refer to the electronic Patient Visit Report (Discharge Instructions) for additional information.
[2017-09-12] MEDS ORDERED: INSULIN ASPART 100 UNITS/ML 3 ML PEN SC SCH
[2017-09-12] MEDS ORDERED: INSULIN HUMAN NPH SC SCH (08:00)
== END 2017-09-11 14:45 | disposition home or self-care (01) | DRG 202 ==
LOC: C.EDB 17:41 → C.4E 23:34 → ENRESERV 23:49
PROVIDERS: ADMIT Internal Medicine; ATTEND Internal Medicine
DX: J45.998 Other asthma (principal); Z68.41 Body mass index [BMI] 40.0-44.9, adult; J06.9 Acute upper respiratory infection, unspecified; J32.0 Chronic maxillary sinusitis; R00.0 Tachycardia, unspecified; F17.200 Nicotine dependence, unspecified, uncomplicated; R73.03 Prediabetes; T38.0X5A Adverse effect of glucocorticoids and synthetic analogues, initial encounter; E66.01 Morbid (severe) obesity due to excess calories; Z86.711 Personal history of pulmonary embolism; Z80.1 Family history of malignant neoplasm of trachea, bronchus and lung; Z83.3 Family history of diabetes mellitus